=== PATIENT | female | born 1945 | race Caucasian/White ===

== ENCOUNTER → 2023-05-31 06:26 | Outpatient (REF) | payer MEDICARE, OTHER, SELFPAY ==
[2023-05-31 07:19] LABS: % Basophils 0.8 % (0-2); % Immature Granulocytes 0.3 % (0-0.5); % Monocytes 6.5 % (1.7-9.3); % Neutrophils 69.4 % (42.2-75.2); Absolute Basophils 0.1 10^3/uL (0-0.2); Absolute Eosinophils 0.1 10^3/uL (0-0.7); Absolute Lymphocytes 1.3 10^3/uL (1.2-3.4); Absolute Monocytes 0.4 10^3/uL (0.1-0.6); Absolute Neutrophils 4.2 10^3/uL (1.4-6.5); Hematocrit 42.3 % (37.0-47.0); Hemoglobin 14.1 g/dL (12.0-16.0); Mean Corp Hgb Conc. 33.3 g/dL (33.0-37.0); Mean Corpuscular Volume 84.1 fL (81.0-99.0); Mean Platelet Volume 10.4 fL (7.4-10.4); Nucleated Red Blood Cells % 0 %; Platelet Count 234 10^3/uL (130-400); Red Blood Cell Count 5.03 10^6/uL (4.20-5.40); Red Cell Dist. Width 13.1 % (11.5-14.5)
[2023-05-31 07:44] LABS: ALT (SGPT) 29 U/L (0-35); AST (SGOT) 28 U/L (14-36); Albumin 4.2 g/dl (3.5-5.0); Alkaline Phosphatase 67 U/L (38-126); Blood Urea Nitrogen 12 mg/dl (7-17); Calcium 9.3 mg/dl (8.4-10.2); Carbon Dioxide 28 mmol/L (22-30); Chloride 104 mmol/L (98-107); Glucose 97 mg/dl (70-99); HDL Cholesterol 68 mg/dl; LDL Cholesterol, Calculated 86 mg/dl; Potassium 3.5 mmol/L (3.5-5.1); Sodium 137 mmol/L (135-145); Total Cholesterol 181 mg/dl (50-199); Total Protein 6.6 g/dl (6.3-8.2); Triglyceride 135 mg/dl (10-149); Very Low Density Lipoprotein 27 mg/dl (0-30); eGFR > 60.00
[2023-05-31 08:08] LABS: TSH Reflex To Free T4 1.63 uIU/ml (0.47-4.68)
[2023-05-31 10:05] LABS: Glycohemoglobin (HgbA1c) 5.6 % (4.0-5.6)
== END ==
LOC: REG 06:26
PROVIDERS: ATTENDING PHYSICIAN Nurse Practitioner Family; FAMILY PHYSICIAN Family Medicine
DX: I10 Essential (primary) hypertension (principal); E04.1 Nontoxic single thyroid nodule; E78.00 Pure hypercholesterolemia, unspecified; R73.9 Hyperglycemia, unspecified; R35.0 Frequency of micturition; Z87.448 Personal history of other diseases of urinary system; K52.9 Noninfective gastroenteritis and colitis, unspecified
CPT/HCPCS: 36415; 80053; 80061; 83036; 84443; 85025

== ENCOUNTER → 2023-07-14 14:05 | Outpatient (REF) | payer MEDICARE, OTHER, SELFPAY ==
[2023-07-14 19:18] LABS: Urine Albumin Negative (Neg - Trace); Urine Bilirubin Negative (Negative); Urine Character Clear (Clear); Urine Color Yellow; Urine Glucose Negative (Negative); Urine Ketone Negative (Negative); Urine Leukocyte Negative (Negative); Urine Nitrite Negative (Negative); Urine Occult Blood Negative (Negative); Urine Urobilinogen Negative (Neg - 1+)
== END ==
LOC: CLAB 14:05
PROVIDERS: ATTENDING PHYSICIAN Nurse Practitioner
DX: N39.0 Urinary tract infection, site not specified (principal)
CPT/HCPCS: 81003; 87086

== ENCOUNTER 2023-08-06 05:56 | Emergency (ER) | payer MEDICARE, OTHER, SELFPAY ==
[2023-08-06 06:00] VITALS: BP 167/80
[2023-08-06 07:33] LABS: % Basophils 0.5 % (0-2); % Eosinophils 0.5 % (0-6); % Immature Granulocytes 0.3 % (0-0.5); % Lymphocytes 10.4 % (20.5-51.1); % Monocytes 6.6 % (1.7-9.3); % Neutrophils 81.7 % (42.2-75.2); Absolute Lymphocytes 0.9 10^3/uL (1.2-3.4); Absolute Monocytes 0.6 10^3/uL (0.1-0.6); Absolute Neutrophils 7.1 10^3/uL (1.4-6.5); Hematocrit 41.8 % (37.0-47.0); Hemoglobin 14.1 g/dL (12.0-16.0); Mean Corp Hgb Conc. 33.7 g/dL (33.0-37.0); Mean Corpuscular Hgb 28.4 pg (27.0-31.0); Mean Corpuscular Volume 84.3 fL (81.0-99.0); Mean Platelet Volume 9.8 fL (7.4-10.4); Nucleated Red Blood Cells % 0 %; Platelet Count 222 10^3/uL (130-400); Red Blood Cell Count 4.96 10^6/uL (4.20-5.40); Red Cell Dist. Width 12.9 % (11.5-14.5); White Blood Cell Count 8.7 10^3/uL (4.8-10.8)
[2023-08-06 07:40] LABS: Urine Albumin Trace (Neg - Trace); Urine Bilirubin Negative (Negative); Urine Character Slightly Cloudy (Clear); Urine Color Yellow; Urine Glucose Negative (Negative); Urine Ketone Negative (Negative); Urine Leukocyte 2+ (Negative); Urine Nitrite Negative (Negative); Urine Occult Blood 1+ (Negative); Urine Urobilinogen Negative (Neg - 1+)
[2023-08-06 07:43] LABS: ALT (SGPT) 25 U/L (0-35); AST (SGOT) 24 U/L (14-36); Alkaline Phosphatase 45 U/L (38-126); Blood Urea Nitrogen 14 mg/dl (7-17); Calcium 9.4 mg/dl (8.4-10.2); Carbon Dioxide 26 mmol/L (22-30); Chloride 103 mmol/L (98-107); Glucose 151 mg/dl (70-99); Potassium 3.3 mmol/L (3.5-5.1); Sodium 137 mmol/L (135-145); Total Bilirubin 0.9 mg/dl (0.2-1.3); Total Protein 6.4 g/dl (6.3-8.2); eGFR > 60.00
[2023-08-06 08:10] LABS: Urine White Cell >100 /HPF (0-5)
[2023-08-06 08:11] LABS: Urine Bacteria Moderate (Negative)
--- NOTE | 2023-08-06 08:27 | ED.GENMED ---
Addendum entered and electronically signed by Jose Herrera Jr., PA-C 08/10/23 14:49:
Patient was switched to nitrofurantoin by her primary care doctor which is an appropriate antibiotic.
Original Note:
History of Present Illness
General
Chief Complaint: Urinary Symptoms
Source: patient and records
Exam Limitations: none
Time Seen by Provider: 08/06/23 06:25
Nursing documentation reviewed up to this point in time: agreed with
Travel History
Have you had any contact with someone who has COVID-19?: No
Do you have any symptoms of coronavirus? Fever > 100 degrees, chills, cough, shortness of breath, sore throat, loss of taste or smell, muscle aches, or headache?: No
History of Present Illness
History of Present Illness:
Patient is a 77-year-old female presents to the emergency department complaining of dysuria with frequency and urgency. Patient's in April and since then she has been having this recurrently. Patient has seen a urologist and had an
ultrasound of her kidneys and bladder ordered as well as a pelvis ultrasound. Patient has seen her sack filler and said other than dry mucosa everything was fine. Patient denies fever or chills. Patient denies any nausea, vomiting or diarrhea
although she admits to frequent bowel movements today. Patient does have some vague abdominal discomfort but does not describe it as pain. Patient developed back pain on the right with this this morning. Patient had dysuria start approximately 6
days ago and went to an urgent care and was started on amoxicillin. Patient has been taking Azo over the past few days with symptomatic relief but still is getting dysuria. Patient does have a history of a kidney stone on a previous CT a few years
ago.
Past History
Past History
ED Past Medical History: HTN, Hypercholesterolemia and Other
ED Past Surgical History: , Orthopedic and Urological
Social History
Tobacco: Non-smoker
Alcohol: None
Personal:
Living: with family
Employment: Retired
Family History
Family History: Other (Mother with CVA and diabetes)
Review of Systems
Review of Systems
All Other Systems: ROS reviewed and negative except as documented in HPI and ROS
Constitutional: Reports no symptoms
EENT: Reports no symptoms
Respiratory: Reports no symptoms
ABD/GI: Reports no symptoms
Musculoskeletal: Reports back pain
Skin: Reports no symptoms
Neurological: Reports no symptoms
Hematologic/Lymphatic: Reports no symptoms
Psychiatric: Reports no symptoms
Phy Exam
Physical Exam
Physical Exam:
Physical Exam
General: No apparent distress, alert and appropriate, well nourished, well hydrated
HENT: Normocephalic, supple with no lymphadenopathy, no thyromegaly
Eyes: Clear sclera, conjuctiva without injection
Heart: Regular rhythm and rate. No S3, S4. No murmur.
Lungs: No respiratory distress, no stridor, lung sounds clear and equal bilaterally
Abdomen: Soft, nontender, no organomegaly, no CVA tenderness, BS good
Neuro: Alert and oriented x 3, CN II - XII intact, no motor focality, no cerebellar dysfunction
Skin: no rash
Psychiatric: well kept. interactive and cooperative
Extremities: No edema, cyanosis, tenderness, Good and equal peripheral pulses.
Course
Orders/Labs/Results
Orders:
Orders
08/06/23 06:37
Mag Hydrox/Al Hydrox/Simeth [Maalox] 30 ml Phenobarb/Hyoscy/Atropine/Scop [] 10 ml Viscous Lidocaine 2% [Xylocaine Viscous Cup] 10 ml PO NOW
Pantoprazole [Protonix IV] 80 mg IV NOW STA
Sucralfate [Carafate] 1 gram PO NOW STA
08/06/23 06:56
Urinalysis Reflex To Culture Urgent
Date Specimen was Collected: 08/06/23
Time Specimen was Collected: 06:54
Urine Microscopic Reflex Cult Urgent
Urine Culture Urgent
JUDY Source: U
Specimen Description:
Date Specimen was Collected: 08/06/23
Time Specimen was Collected: 06:54
08/06/23 07:07
Complete Blood Count/With Diff Urgent
Comprehensive Metabolic Panel Urgent
08/06/23 07:41
0.9% Sodium Chloride 1000 ml [Nss] 1,000 ml IV BOLUS
08/06/23 07:51
CT Abd/pel Without Iv Or Oral Urgent
Comment:
Reason For Exam: right back pain hx of stone hematuria
08/06/23 08:26
CT Abd/pelvis W Iv Cont Urgent
Comment:
Reason For Exam: ? stone
08/06/23 11:33
Oxybutynin Chloride [Ditropan] 5 mg PO NOW STA
Abnormal Lab Results
08/06/23 08/06/23
06:56 07:07
Absolute Neuts (auto) 7.1 H 10^3/uL
(1.4-6.5)
Absolute Lymphs (auto) 0.9 L 10^3/uL
(1.2-3.4)
Neutrophils % 81.7 H %
(42.2-75.2)
Lymphocytes % 10.4 L %
(20.5-51.1)
Potassium 3.3 L mmol/L
(3.5-5.1)
Glucose 151 H mg/dl
(70-99)
Ur Occult Blood Reflex 1+ A
(Negative)
Leukocyte Esterase Rfl 2+ A
(Negative)
Urine WBC (Reflex) >100 A /HPF
(0-5)
Urine Bacteria (Reflex) Moderate A
(Negative)
08/06/23 07:07
08/06/23 07:07
Vital Signs
Initial and Last Documented VS:
Initial Vital Signs
Temp Pulse Resp BP Pulse Ox
98.3 F 90 22 167/80 100
08/06/23 06:00 08/06/23 06:00 08/06/23 06:00 08/06/23 06:00 08/06/23 06:00
Last Documented Vital Signs
Temp Pulse Resp BP Pulse Ox
97.7 F 64 18 157/66 95
08/06/23 07:05 08/06/23 11:43 08/06/23 11:43 08/06/23 11:43 08/06/23 11:43
*Pulse Oximetry
Patient hypoxic: no
*Area Director Interpretation
Rate: Area Director- N/A
*Critical Care Note
Total Time (30-74mins, 75-104mins- exclusive of procedures): Not Applicable
Update Note
Update Note:
The CT scan initially was not definitive is whether there is an obstruction or not I admitted pelvis of the kidney was enlarged however on contrast study there is no obstruction. Patient could be having bladder spasm and does have an appoint with
urology in 2 weeks. At that time she is post to get a cystoscopy which I think is essential to her follow-up care. She may require measurements of bladder activity. Will try her on Azo and Ditropan in the meantime. Patient is to finish her
antibiotics that she has proximately 1 to 2 days left. This does not appear to be a urinary tract infection.
ED Attending Note
-
Portions of this chart may have been created with voice recognition software.� Occasional wrong word or��sound alike� substitutions may have occurred due to the inherent limitations of voice recognition software.
Discharge Plan
Departure
Patient Disposition: Home (Routine Discharge)
Date of Disposition: 08/06/23
Time of Disposition: 11:54
Patient with high blood pressure during this ER visit?: Yes
Condition: Fair
Covid-19: Not Applicable
Discharge Problem:
Dysuria-frequency syndrome
Instructions: Blood in the Urine (Hematuria), Adult (DC), Bladder spasm, BLOOD PRESSURE
Prescriptions:
New
oxybutynin chloride 5 mg tablet
5 mg PO TID Qty: 20 0RF
No Action
garlic [Odorless Garlic] 1,250 MG tablet
1,250 mg PO DAILY
lovastatin 20 MG tablet
20 mg PO DAILY
B-complex with vitamin C 1 CAPSULE tablet
1 cap PO DAILY
vitamin E (dl, acetate) 400 UNITS capsule
400 units PO DAILY
[id number]-epa-fish oil 1 EACH capsule
1 ea PO BID
Metoprolol - Hctz 100 MG/25 MG
1 tab PO DAILY
Osteovalin
1 tab PO DAILY
alprazolam 0.25 MG tablet,disintegrating
0.25 mg PO PRN PRN (Reason: Anxiety)
Amlodipine Besylate
5 mg PO DAILY
phenazopyridine 200 MG tablet
200 mg PO TID Qty: 6 0RF
fosfomycin tromethamine 3 GM packet
3 gm PO ONCE Qty: 1 0RF
Rx Instructions:
to be taken 02/23/16
Referrals:
Dena Basurto MD [Family Provider] - Follow up in 5-7 days
Activity Restrictions/Additional Instructions:
Keep appointment with urology. Your ultrasounds were canceled. Continue the Azo. Finish the antibiotics.
Interventions
Interventions:
*Risk Screen - Suicide Last Done: 08/06/23 06:00
*General Assessment Last Done: 08/06/23 06:00
*Neglect/Abuse Screening Last Done: 08/06/23 06:00
ED- Fall Risk Assessment Last Done: 08/06/23 06:00
*ED COVID-19 Vaccine History Last Done: 08/06/23 06:00
ED-Female Genitourinary Assessment Last Done: 08/06/23 08:33
Discharge Date and Time
Print Language: GAMBIAN
[2023-08-06 08:32] VITALS: BP 144/63
[2023-08-06] MEDS: NSS 1000 IV (08:42)
[2023-08-06 10:00] VITALS: BP 123/57
[2023-08-06] MEDS: DITROPAN 5 MG PO (11:42)
[2023-08-06 11:43] VITALS: BP 157/66
== END 2023-08-06 12:04 | disposition home or self-care (01) ==
LOC: EMR 05:56
PROVIDERS: EMERGENCY PHYSICIAN Emergency Medicine; FAMILY PHYSICIAN Family Medicine
DX: R30.0 Dysuria (principal); R35.0 Frequency of micturition; I10 Essential (primary) hypertension
CPT/HCPCS: 99285; 96360; 74176; 74177; 80053; 81003; 81015; 85025; 87071; 87086; 87186; Q9967

== ENCOUNTER → 2023-08-17 08:01 | Outpatient (REF) | payer MEDICARE, OTHER, SELFPAY | LOC: WDC 08:01 | PROVIDERS: ATTENDING PHYSICIAN Family Medicine | DX: Z12.31 Encounter for screening mammogram for malignant neoplasm of breast (principal) | CPT/HCPCS: 77063; 77067 ==

== ENCOUNTER → 2024-06-06 06:52 | Outpatient (REF) | payer MEDICARE, OTHER, SELFPAY ==
[2024-06-06 08:11] LABS: ALT (SGPT) 28 U/L (0-35); AST (SGOT) 24 U/L (14-36); Albumin 4.5 g/dl (3.5-5.0); Alkaline Phosphatase 70 U/L (38-126); Blood Urea Nitrogen 18 mg/dl (7-17); Calcium 9.6 mg/dl (8.4-10.2); Carbon Dioxide 26 mmol/L (22-30); Chloride 103 mmol/L (98-107); Glucose 105 mg/dl (70-99); HDL Cholesterol 60 mg/dl; LDL Cholesterol, Calculated 100 mg/dl; Potassium 3.3 mmol/L (3.5-5.1); Sodium 141 mmol/L (135-145); Total Bilirubin 0.8 mg/dl (0.2-1.3); Total Cholesterol 177 mg/dl (50-199); Total Protein 6.7 g/dl (6.3-8.2); Triglyceride 89 mg/dl (10-149); Very Low Density Lipoprotein 17 mg/dl (0-30); eGFR > 60.00
[2024-06-06 09:13] LABS: Glycohemoglobin (HgbA1c) 5.5 % (4.0-5.6)
== END ==
LOC: RAD 06:52
PROVIDERS: ATTENDING PHYSICIAN Family Medicine
DX: E04.1 Nontoxic single thyroid nodule (principal); I10 Essential (primary) hypertension; E78.00 Pure hypercholesterolemia, unspecified; R73.9 Hyperglycemia, unspecified
CPT/HCPCS: 36415; 76536; 80053; 80061; 83036

== ENCOUNTER → 2024-06-27 06:34 | Outpatient (REF) | payer MEDICARE, OTHER, SELFPAY ==
[2024-06-27 08:40] LABS: Potassium 3.8 mmol/L (3.5-5.1)
== END ==
LOC: REG 06:34
PROVIDERS: ATTENDING PHYSICIAN Family Medicine
DX: E87.6 Hypokalemia (principal)
CPT/HCPCS: 36415; 84132

== ENCOUNTER → 2024-08-18 08:25 | Outpatient (REF) | payer MEDICARE, OTHER, SELFPAY | LOC: WDC 08:25 | PROVIDERS: ATTENDING PHYSICIAN Family Medicine | DX: Z12.31 Encounter for screening mammogram for malignant neoplasm of breast (principal) | CPT/HCPCS: 77063; 77067 ==

== ENCOUNTER 2024-11-11 14:17 | Emergency (ER) | payer MEDICARE, OTHER, SELFPAY ==
[2024-11-11 14:32] VITALS: BP 156/79
[2024-11-11 14:59] LABS: Hematocrit 42.8 % (37.0-47.0); Hemoglobin 14.8 g/dL (12.0-16.0); Mean Corp Hgb Conc. 34.6 g/dL (33.0-37.0); Mean Corpuscular Volume 81.2 fL (81.0-99.0); Nucleated Red Blood Cells % 0 %; Platelet Count 245 10^3/uL (130-400); Red Cell Dist. Width 13.1 % (11.5-14.5)
[2024-11-11 15:27] LABS: ALT (SGPT) 26 U/L (0-35); AST (SGOT) 26 U/L (14-36); Albumin 4.8 g/dl (3.5-5.0); Alkaline Phosphatase 52 U/L (38-126); Blood Urea Nitrogen 15 mg/dl (7-17); Calcium 10.3 mg/dl (8.4-10.2); Carbon Dioxide 30 mmol/L (22-30); Chloride 103 mmol/L (98-107); Glucose 96 mg/dl (70-99); Potassium 3.3 mmol/L (3.5-5.1); Sodium 140 mmol/L (135-145); Total Protein 7.1 g/dl (6.3-8.2); eGFR > 60.00
--- NOTE | 2024-11-11 17:42 | ED.GENMED ---
History of Present Illness
General
Chief Complaint: Headache
Time Seen by Provider: 11/11/24 17:42
History of Present Illness
History of Present Illness:
FOCUSED PAST MEDICAL HISTORY
- History of ocular migraine and high blood pressure.
REVIEW OF OLD RECORDS
- The patient had ultrasound imaging of the carotids in 2016 that showed no ICA stenosis greater than 50%
Note:
CHIEF COMPLAINT(S)
Visual disturbance and headache.
HISTORY OF PRESENT ILLNESS
The patient is an 78-year-old female with a history of ocular migraines, who presented with complaints of frequent visual disturbances over the past two weeks. Previously, she experienced ocular migraines approximately once or twice a year. She
described the recent episodes as more frequent and potentially triggered by stress. During the episode, she noted a visual distortion in her right eye, jesika to looking through a 'broken mirror' or 'veil,' with no pain currently. She can relieve
symptoms with aspirin. She also reported a headache localized to the area above the nose, without accompanying loss of vision. No current medication list was provided, but she mentioned being on multiple antihypertensives.
EXTERNAL RECORDS REVIEWED
Carotid imaging from 2016 showed no major blockages. Recent blood work revealed a minor decrease in potassium levels at 3.3 mmol/L.
PHYSICAL EXAM
- General: Well appearing in no distress
- HEENT: Moist oral mucosa, no temporal tenderness
- Cardiovascular: No murmurs, normal heart rate, regular rhythm, No chest wall tenderness
- Pulmonary: No respiratory distress, breath sounds are clear and equal
- Abdomen: Soft with no peritoneal signs, no tenderness
- Neurologic: Excellent strength all extremities, no coordination deficits, NIHSS equals 0
- Psychiatric: Appropriate mental status, normal insight and judgement
- Extremities: Nontender, no edema, moves all extremities equally
- Skin: No rash, no lesions
PLAN
Arrange discharge paperwork to allow for home recovery, considering that the symptoms resolved with aspirin and no acute issues were identified on CT or initial lab work.
DIFFERENTIAL DIAGNOSIS
- The Differential Diagnosis includes, in no particular order and is not limited to:
- Migraine
- Ocular migraine
- Transient ischemic attack (TIA)
- Retinal detachment or tear
- Tension headache
- Cluster headache
- Anxiety-related symptoms
- Sinus headache
- Increased intracranial pressure
- Giant cell arteritis
SUMMARY OF ENCOUNTER
The patient was evaluated in the emergency department due to an increase in frequency of ocular migraine symptoms including visual disturbances in the right eye and headaches over the nasal region. A non-contrast CT scan was performed, which showed
no acute intracranial pathology. Potassium levels were found to be slightly low, yet insignificant in this context. The patient reported feeling well after taking aspirin and had stable neurology exam findings without signs indicating acute stroke
or significant pathology. Given these findings and improvement of symptoms, discharge was deemed appropriate.
DISPOSITION
Discharge.
INDEPENDENT REVIEW OF LABS AND INTERPRETATION OF TESTS
- My independent review of the CT scan indicated no presence of acute intracranial abnormalities.
- My independent review of lab results showed a potassium level of 3.3 mmol/L, a marginal decrease but not deemed clinically significant.
FOLLOW-UP INSTRUCTIONS
Advise follow-up with her primary care physician to manage medication and evaluate the need for further testing or specialist referral if symptoms persist or worsen.
MEDICATION RECONCILIATION
Medication administration: Aspirin was self-administered by the patient for symptom relief prior to the visit.
MEDICAL DECISION MAKING
- Complexity of Data Reviewed: Chronic conditions affecting care: Possible history of ocular migraines noted.
- Data:
Category 1:
- Review of external carotid imaging records from 2016.
- My independent interpretation of the CT scan and lab results.
- Risk:
Considering outpatient management was safe due to the resolving symptoms and reassuring workup findings.
DIAGNOSIS
- Migraine, with visual aura (ICD-10: G43.109)
- Headache, unspecified (ICD-10: R51)
- Hypokalemia, unspecified (ICD-10: E87.6)
RADIOLOGY
- CT head shows no acute abnormality.
LABS
- Chemistries unremarkable other than potassium of 3.3, CBC unremarkable
SUMMARY OF ENCOUNTER
The patient, an 78-year-old female, was seen in the emergency department due to frequent visual disturbances and headaches, suspected to be ocular migraines. Symptoms included a visual distortion jesika to looking through a 'broken mirror' in her
right eye and a headache above the nose. She reported improvement with aspirin. Physical examination revealed no acute neurological deficits, and a CT scan showed no acute intracranial abnormalities. Her potassium levels were slightly low at 3.3
mmol/L, but she declined potassium replacement, opting instead to increase potassium in her diet through food.
DISPOSITION
Discharge.
ASSESSMENT
Suspected ocular migraine with associated visual disturbances and headache.
PLAN
Discharge home with advice to follow up with her primary care physician for ongoing management and consideration of further testing if symptoms persist.
INDEPENDENT REVIEW OF LABS AND INTERPRETATION OF TESTS
- My independent review of lab results showed a potassium level of 3.3 mmol/L, which is a marginal decrease but not clinically significant in this context.
- My independent review of the CT scan indicated no presence of acute intracranial abnormalities.
FOLLOW-UP INSTRUCTIONS
Advise follow-up with her primary care physician to manage medication and evaluate the need for further testing or specialist referral if symptoms persist or worsen.
MEDICATION RECONCILIATION
Patient self-administered aspirin for symptom relief.
MEDICAL DECISION MAKING
- Number and Complexity of Problems Addressed: Chronic conditions affecting care, including a history of ocular migraines. Differential diagnosis considered migraine, ocular migraine, transient ischemic attack (TIA), retinal detachment or tear,
tension headache, cluster headache, anxiety-related symptoms, sinus headache, increased intracranial pressure, and giant cell arteritis.
- Data:
- Category 1: My independent review of external carotid imaging records from 2016 and my interpretation of the CT scan and lab results.
- Category 2: Not applicable as there was no additional history from external sources other than patient self-report.
- Risk: Consideration of Admission/Observation: Escalation of care including admission/observation was considered given the complexity and risk of the patients presenting complaint. However, ultimately, I feel the patient is safe for outpatient
management with close follow-up. Reasoning: Work-up reassuring, does not reveal any acute life/organ-threatening processes, patients symptoms well-controlled upon reevaluation, reexamination is reassuring, vitals are stable, patient agreeable with
discharge, reliable for follow-up.
DIAGNOSIS
- Migraine, with visual aura (ICD-10: G43.109)
- Headache, unspecified (ICD-10: R51)
- Hypokalemia, unspecified (ICD-10: E87.6)
Past History
Past History
ED Past Medical History: HTN, Hypercholesterolemia and Other
ED Past Surgical History: , Orthopedic and Urological
Social History
Tobacco: Non-smoker
Alcohol: None
Personal:
Living: with family
Employment: Retired
Family History
Family History: Other (Mother with CVA and diabetes)
Phy Exam
Physical Exam
Physical Exam:
See HPI
Course
Orders/Labs/Results
Orders:
Orders
11/11/24 14:45
CT Head W/o Iv Contrast Urgent
Comment:
Reason For Exam: R visual disturbance
11/11/24 14:52
Complete Blood Count/With Diff Urgent
Comprehensive Metabolic Panel Urgent
Abnormal Lab Results
11/11/24
14:52
Absolute Lymphs (auto) 0.9 L 10^3/uL
(1.2-3.4)
Neutrophils % 78.9 H %
(42.2-75.2)
Lymphocytes % 12.7 L %
(20.5-51.1)
Potassium 3.3 L mmol/L
(3.5-5.1)
Calcium 10.3 H mg/dl
(8.4-10.2)
11/11/24 14:52
11/11/24 14:52
Vital Signs
Initial and Last Documented VS:
Initial Vital Signs
Temp Pulse Resp BP Pulse Ox
36.6 C 72 18 156/79 99
11/11/24 14:32 11/11/24 14:32 11/11/24 14:32 11/11/24 14:32 11/11/24 14:32
Last Documented Vital Signs
Temp Pulse Resp BP Pulse Ox
36.6 C 72 18 156/79 99
11/11/24 14:32 11/11/24 14:32 11/11/24 14:32 11/11/24 14:32 11/11/24 14:32
*Pulse Oximetry
SaO2: 99
Oxygen Mode of Delivery: Room air
Patient hypoxic: no
*Critical Care Note
Total Time (30-74mins, 75-104mins- exclusive of procedures): Not Applicable
ED Attending Note
-
Portions of this chart may have been created with voice recognition software.� Occasional wrong word or��sound alike� substitutions may have occurred due to the inherent limitations of voice recognition software.
Discharge Plan
Departure
Prescriptions:
No Action
garlic [Odorless Garlic] 1,250 MG tablet
1,250 mg PO DAILY
lovastatin 20 MG tablet
20 mg PO DAILY
B-complex with vitamin C 1 CAPSULE tablet
1 cap PO DAILY
vitamin E (dl, acetate) 400 UNITS capsule
400 units PO DAILY
[id number]-epa-fish oil 1 EACH capsule
1 ea PO BID
Metoprolol - Hctz 100 MG/25 MG
1 tab PO DAILY
Osteovalin
1 tab PO DAILY
alprazolam 0.25 MG tablet,disintegrating
0.25 mg PO PRN PRN (Reason: Anxiety)
Amlodipine Besylate
5 mg PO DAILY
phenazopyridine 200 MG tablet
200 mg PO TID Qty: 6 0RF
fosfomycin tromethamine 3 GM packet
3 gm PO ONCE Qty: 1 0RF
Rx Instructions:
to be taken 02/23/16
oxybutynin chloride 5 mg tablet
5 mg PO TID Qty: 20 0RF
Interventions
Interventions:
*General Assessment Last Done: 11/11/24 14:32
*Neglect/Abuse Screening Last Done: 11/11/24 14:32
*ED COVID-19 Vaccine History Last Done: 11/11/24 14:32
Discharge Date and Time
Print Language: UPPER SORBIAN
== END 2024-11-11 18:46 | disposition home or self-care (01) ==
LOC: EMR 14:17
PROVIDERS: Physician Assistant; EMERGENCY PHYSICIAN Emergency Medicine; FAMILY PHYSICIAN Family Medicine
DX: G43.109 Migraine with aura, not intractable, without status migrainosus (principal); I10 Essential (primary) hypertension; E78.00 Pure hypercholesterolemia, unspecified; E87.6 Hypokalemia; Z82.3 Family history of stroke
CPT/HCPCS: 99284; 70450; 80053; 85025

== ENCOUNTER → 2025-01-08 08:43 | Outpatient (REF) | payer MEDICARE, OTHER, SELFPAY | LOC: RAD 08:43 | PROVIDERS: ATTENDING PHYSICIAN Family Medicine | DX: E04.9 Nontoxic goiter, unspecified (principal); E04.1 Nontoxic single thyroid nodule | CPT/HCPCS: 76536 ==

== ENCOUNTER → 2025-02-07 13:10 | Outpatient (REF) | payer MEDICARE, OTHER, SELFPAY ==
[2025-02-07 13:23] VITALS: BP 140/70; BP_SYST 65
== END ==
LOC: RADI 13:10
PROVIDERS: ATTENDING PHYSICIAN Family Medicine
DX: E04.2 Nontoxic multinodular goiter (principal)
CPT/HCPCS: 10005; 10006; 88173